=== PATIENT | male | born 1965 | race American Indian/Alaskan Native ===

== ENCOUNTER 2017-08-29 22:25 | Inpatient (IN) | payer BC ==
[2017-08-29] MEDS ORDERED: ASPIRIN PO ONE (23:52)
[2017-08-30 00:25] LABS: Basophils % (Auto) 0.7 % (0.0-1.8); Eosinophils # (Auto) 0.1 K/mm3 (0.0-0.4); Eosinophils % (Auto) 2.5 % (0.0-4.3); Hematocrit 42.6 % (35.5-45.6); Hemoglobin 14.4 gm/dl (11.8-15.2); Lymphocytes # (Auto) 1.5 K/mm3 (1.2-5.4); Lymphocytes % (Auto) 29.6 % (13.4-35.0); Mean Corpuscular HGB Conc 34 % (32-34); Mean Corpuscular Hemoglobin 30 pg (28-32); Mean Corpuscular Volume 89 fl (84-94); Monocytes # (Auto) 0.3 K/mm3 (0.0-0.8); Monocytes % (Auto) 5.4 % (0.0-7.3); Platelet Count 209 K/mm3 (140-440); Red Blood Count 4.81 M/mm3 (3.65-5.03); Red Cell Distribution Width 13.3 % (13.2-15.2)
[2017-08-30 00:33] LABS: BUN/Creatinine Ratio 13; Blood Urea Nitrogen 12 mg/dL (9-20); Calcium 9.6 mg/dL (8.4-10.2); Hemolysis Index 23
--- NOTE | 2017-08-30 02:31 | Emergency Department Report ---
ED Chest Pain HPI - General Chief Complaint: Chest Pain Stated Complaint: DIZZINESS,LEFT SHOULDER PAIN Time Seen by Provider: 08/30/17 00:11 Source: patient Mode of arrival: Ambulatory Limitations: No Limitations - History of Present Illness Initial Comments: Patient with chest pain for the last 3 days after 3 weeks of back pain that got better with a muscle relaxor. Patient did state at the end of the visit that he had a stress test 1 month ago and that the only concern was that his HR jumped up quickly on the test. He has no risk factors and no early VA in family. No pain change with position. -: days(s) (3) Onset: during rest, during exertion Pain Location: substernal Pain Radiation: none Severity: moderate Severity scale (0 -10): 5 Quality: heaviness, sharp Consistency: intermittent Improves With: nothing Worsens With: nothing re: other Other Symptoms: other (none) Aspirin use within the Past 7 Days: (0) No - Related Data Allergies Allergy/AdvReac Type Severity Reaction Status Date / Time No Known Allergies Allergy Unverified 08/29/17 23:51 Heart Score - HEART Score History: Moderately suspicious EKG: Non-specific Age: 45-65 Risk factors: No known risk factors Troponin: < normal limit HEART Score: 3 ED Review of Systems ROS: Stated complaint: DIZZINESS,LEFT SHOULDER PAIN Other details as noted in HPI Constitutional: denies: chills, fever Eyes: denies: eye pain, eye discharge, vision change ENT: denies: ear pain, throat pain Respiratory: denies: cough, shortness of breath, wheezing Cardiovascular: chest pain. denies: palpitations Endocrine: no symptoms reported Gastrointestinal: denies: abdominal pain, nausea, diarrhea Genitourinary: denies: urgency, dysuria Musculoskeletal: denies: back pain, joint swelling, arthralgia Skin: denies: rash, lesions Neurological: denies: headache, weakness, paresthesias Psychiatric: denies: anxiety, depression Hematological/Lymphatic: denies: easy bleeding, easy bruising ED Past Medical Hx - Past Medical History Hx GERD: Yes Hx Asthma: Yes - Surgical History Past Surgical History?: Yes Additional Surgical History: right forearm, compartment symdrome - Social History Smoking Status: Never Smoker Substance Use Type: Alcohol ED Physical Exam - General Limitations: No Limitations General appearance: alert, in no apparent distress - Head Head exam: Present: atraumatic, normocephalic - Eye Eye exam: Present: normal appearance - ENT ENT exam: Present: mucous membranes moist - Neck Neck exam: Present: normal inspection - Respiratory Respiratory exam: Present: normal lung sounds bilaterally. Absent: respiratory distress - Cardiovascular Cardiovascular Exam: Present: regular rate, normal rhythm. Absent: systolic murmur, diastolic murmur, rubs, gallop - GI/Abdominal GI/Abdominal exam: Present: soft, normal bowel sounds - Rectal Rectal exam: Present: deferred - Extremities Exam Extremities exam: Present: normal inspection - Back Exam Back exam: Present: normal inspection - Neurological Exam Neurological exam: Present: alert, oriented X3 - Psychiatric Psychiatric exam: Present: normal affect, normal mood - Skin Skin exam: Present: warm, dry, intact, normal color. Absent: rash ED Course Vital Signs 08/29/17 08/29/17 08/30/17 23:16 23:47 00:10 Temperature 98.0 F 98 F 98.5 F Pulse Rate 74 76 75 Respiratory 18 18 16 Rate Blood Pressure 145/75 145/75 Blood Pressure 172/89 [Left] O2 Sat by Pulse 99 99 99 Oximetry DOUGLAS score - Douglas Score Age > 65: (0) No Aspirin use within the Past 7 Days: (0) No 3 or more CAD Risk Factors: (0) No 2 or more Angina events in past 24 hrs: (1) Yes Known CAD with more than 50% Stenosis: (0) No Elevated Cardiac Markers: (0) No ST Deviation Greater than 0.5mm: (1) Yes DOUGLAS Score: 2 ED Medical Decision Making - Lab Data Result diagrams: 08/29/17 23:59 08/29/17 23:59 Unremarkable labs - EKG Data -: EKG Interpreted by Sd EKG shows normal: sinus rhythm, intervals (Normal), QRS complexes (normal), ST- T waves (Elevation in the anterior lead on both EKGs at 08/29/17 23:50 and 08/30/17 2:12. D/W Dr. Acevedo and he agreed not STEMI.) Rate: normal - EKG Data Interpretation: nonspecific ST-T wave milka - Medical Decision Making Will admit patient for monitoring and consult by cardiology. His PCP is Dr. Luke and he does not have an established registered nurse midwife per patient. His Sx are not consistent with pericarditis and with elevated HR on stress and now anterior lead ST changes he needs to be monitored. Critical care attestation.: If time is entered above; I have spent that time in minutes in the direct care of this critically ill patient, excluding procedure time. ED Disposition Clinical Impression: Abnormal EKG Chest pain Qualifiers: Chest pain type: unspecified Qualified Code(s): R07.9 - Chest pain, unspecified Disposition: 09 OP ADMIT IP TO THIS HOSP Is pt being admited?: Yes Does the pt Need Aspirin: Yes Condition: Stable Instructions: Chest Pain (ED) Time of Disposition: 02:47
[2017-08-30] MEDS ORDERED: BABY ASPIRIN PO ONE (02:47)
[2017-08-30] MEDS ORDERED: ZOFRAN IV PRN (04:16)
[2017-08-30] MEDS ORDERED: MORPHINE IV PRN (04:16)
[2017-08-30] MEDS ORDERED: DULCOLAX PR PRN (04:16)
[2017-08-30] MEDS ORDERED: MILK OF MAGNESIA PO PRN (04:16)
[2017-08-30] MEDS ORDERED: TYLENOL PO PRN (04:16)
--- NOTE | 2017-08-30 04:24 | History and Physical Report ---
History of Present Illness Date of examination: 08/30/17 History of present illness: 51 with history of asthma comes emergency room complaining of chest pain 3 days. Pain is in the substernal area which he describes a dull pain, intermittent for less than 1 minute, intensity 5/10, no radiation. Denies nausea, vomiting, diaphoresis, palpitation, shortness of breath. It is stress test one month ago which was negative. Review Of Systems: Constitutional: no weight loss Ears, eyes, nose, mouth and throat: no nasal congestion, no nasal discharge, no sinus pressure, blurry vision, diplopia Neck: No neck pain or rigidity. Cardiovascular: No palpitations Respiratory: No shortness of breath, cough Gastrointestinal: No abdominal pain, hematochezia Genitourinary : no dysuria, frequency , hematuria Musculoskeletal: no muscle ache Integumentary: no rash, no pruritis Neurological: no parathesias, focal weakness Endocrine: no cold or heat intolerance, no polyuria or polydipsia Hematologic/Lymphatic: no easy bruising, no easy bleeding, no gland swelling Allergic/Immunologic: no urticaria, no angioedema. PAST MEDICAL HISTORY:asthma PAST SURGICAL HISTORY:right arm surgery FAMILY HISTORY:hypertension SOCIAL HISTORY: Social alcohol, no tobacco or drugs Medications and Allergies Allergies Allergy/AdvReac Type Severity Reaction Status Date / Time No Known Allergies Allergy Unverified 08/29/17 23:51 Exam - Physical Exam Narrative exam: Gen. appearance: Patient lying in bed in no acute distress HEENT: Normocephalic/atraumatic, pupils equal round reactive to light, extra occular movement intact, no scleral icterus, no JVD or thyromegaly or nodule, neck is supple, mucous membrane moist, no erythema or exudate Heart: S1-S2, regular rate and rhythm Lungs: Clear to auscultation bilateral breathing comfortable Abdomen: Positive bowel sounds, nontender, nondistended, no organomegaly Extremities: No edema, cyanosis, clubbing Neuro:: Oriented 3 , cranial nerves II-12 intact, speech, motor intact Skin: No rash, nodules, warm dry - Constitutional Vitals: Temp Pulse Resp BP Pulse Ox 98.5 F 75 16 172/89 99 08/30/17 00:10 08/30/17 00:10 08/30/17 00:10 08/30/17 00:10 08/30/17 00:10 Results - Labs CBC & Chem 7: 08/29/17 23:59 08/29/17 23:59 Labs: Abnormal lab results 08/29/17 Range/Units 23:59 Sodium 136 L (137-145) mmol/L Chloride 96.9 L (98-107) mmol/L Glucose 106 H (75-100) mg/dL - Imaging and Cardiology EKG: image reviewed Chest x-ray: image reviewed Assessment and Plan Assessment Atypical chest pain Asthma, stable Plan Admit to medicine Enzymes, chest x-ray, consult cardiology Start IV morphine, DVT prophylaxis
--- NOTE | 2017-08-30 05:00 | XRay Report ---
FINAL REPORT EXAM: XR CHEST 1V AP HISTORY: cp TECHNIQUE: A portable upright view of the chest was submitted. FINDINGS: Heart size and mediastinum appear normal. The lungs are clear. Pleural fluid is not seen. The bones and soft tissues are well maintained. IMPRESSION: No active chest disease.
[2017-08-30 05:49] LABS: Creatine Kinase MB 1.8 ng/mL (0.0-4.0)
--- NOTE | 2017-08-30 07:57 | Progress Note ---
<TRAV BEDOYA - Last Filed: 08/30/17 07:57> Hospitalist Physical - Constitutional Vitals: Temp Pulse Resp BP Pulse Ox 98.5 F 68 12 125/70 100 08/30/17 00:10 08/30/17 06:00 08/30/17 06:00 08/30/17 06:00 08/30/17 06:00 Results - Labs CBC & Chem 7: 08/29/17 23:59 08/29/17 23:59 Labs: Laboratory Last Values WBC 5.1 K/mm3 (4.5-11.0) 08/29/17 23:59 RBC 4.81 M/mm3 (3.65-5.03) 08/29/17 23:59 Hgb 14.4 gm/dl (11.8-15.2) 08/29/17 23:59 Hct 42.6 % (35.5-45.6) 08/29/17 23:59 MCV 89 fl (84-94) 08/29/17 23:59 MCH 30 pg (28-32) 08/29/17 23:59 MCHC 34 % (32-34) 08/29/17 23:59 RDW 13.3 % (13.2-15.2) 08/29/17 23:59 Plt Count 209 K/mm3 (140-440) 08/29/17 23:59 Lymph % (Auto) 29.6 % (13.4-35.0) 08/29/17 23:59 [place] % (Auto) 5.4 % (0.0-7.3) 08/29/17 23:59 Eos % (Auto) 2.5 % (0.0-4.3) 08/29/17 23:59 Baso % (Auto) 0.7 % (0.0-1.8) 08/29/17 23:59 Lymph # 1.5 K/mm3 (1.2-5.4) 08/29/17 23:59 [place] # 0.3 K/mm3 (0.0-0.8) 08/29/17 23:59 Eos # 0.1 K/mm3 (0.0-0.4) 08/29/17 23:59 Baso # 0.0 K/mm3 (0.0-0.1) 08/29/17 23:59 Seg Neutrophils % 61.8 % (40.0-70.0) 08/29/17 23:59 Seg Neutrophils # 3.1 K/mm3 (1.8-7.7) 08/29/17 23:59 Sodium 136 mmol/L (137-145) L 08/29/17 23:59 Potassium 4.1 mmol/L (3.6-5.0) 08/29/17 23:59 Chloride 96.9 mmol/L (98-107) L 08/29/17 23:59 Carbon Dioxide 27 mmol/L (22-30) 08/29/17 23:59 Anion Gap 16 mmol/L 08/29/17 23:59 BUN 12 mg/dL (9-20) 08/29/17 23:59 Creatinine 0.9 mg/dL (0.8-1.5) 08/29/17 23:59 Estimated GFR > 60 ml/min 08/29/17 23:59 BUN/Creatinine Ratio 13 % 08/29/17 23:59 Glucose 106 mg/dL (75-100) H 08/29/17 23:59 Calcium 9.6 mg/dL (8.4-10.2) 08/29/17 23:59 Total Creatine Kinase 219 units/L (55-170) H 08/30/17 05:09 CK-MB (CK-2) 1.8 ng/mL (0.0-4.0) 08/30/17 05:09 CK-MB (CK-2) Rel Index 0.8 (0-4) 08/30/17 05:09 Troponin T < 0.010 ng/mL (0.00-0.029) 08/30/17 05:09 <ALEX JEFFRIES M - Last Filed: 09/03/17 14:14> Assessment and Plan Assessment and plan: 1 Hospitalist Physical - Constitutional Vitals: Temp Pulse Resp BP Pulse Ox 98.9 F 67 18 138/75 99 08/30/17 12:17 08/30/17 10:00 08/30/17 12:17 08/30/17 12:17 08/30/17 10:00 Results - Labs CBC & Chem 7: 08/29/17 23:59 08/29/17 23:59 Labs: Laboratory Last Values WBC 5.1 K/mm3 (4.5-11.0) 08/29/17 23:59 RBC 4.81 M/mm3 (3.65-5.03) 08/29/17 23:59 Hgb 14.4 gm/dl (11.8-15.2) 08/29/17 23:59 Hct 42.6 % (35.5-45.6) 08/29/17 23:59 MCV 89 fl (84-94) 08/29/17 23:59 MCH 30 pg (28-32) 08/29/17 23:59 MCHC 34 % (32-34) 08/29/17 23:59 RDW 13.3 % (13.2-15.2) 08/29/17 23:59 Plt Count 209 K/mm3 (140-440) 08/29/17 23:59 Lymph % (Auto) 29.6 % (13.4-35.0) 08/29/17 23:59 [place] % (Auto) 5.4 % (0.0-7.3) 08/29/17 23:59 Eos % (Auto) 2.5 % (0.0-4.3) 08/29/17 23:59 Baso % (Auto) 0.7 % (0.0-1.8) 08/29/17 23:59 Lymph # 1.5 K/mm3 (1.2-5.4) 08/29/17 23:59 [place] # 0.3 K/mm3 (0.0-0.8) 08/29/17 23:59 Eos # 0.1 K/mm3 (0.0-0.4) 08/29/17 23:59 Baso # 0.0 K/mm3 (0.0-0.1) 08/29/17 23:59 Seg Neutrophils % 61.8 % (40.0-70.0) 08/29/17 23:59 Seg Neutrophils # 3.1 K/mm3 (1.8-7.7) 08/29/17 23:59 Sodium 136 mmol/L (137-145) L 08/29/17 23:59 Potassium 4.1 mmol/L (3.6-5.0) 08/29/17 23:59 Chloride 96.9 mmol/L (98-107) L 08/29/17 23:59 Carbon Dioxide 27 mmol/L (22-30) 08/29/17 23:59 Anion Gap 16 mmol/L 08/29/17 23:59 BUN 12 mg/dL (9-20) 08/29/17 23:59 Creatinine 0.9 mg/dL (0.8-1.5) 08/29/17 23:59 Estimated GFR > 60 ml/min 08/29/17 23:59 BUN/Creatinine Ratio 13 % 08/29/17 23:59 Glucose 106 mg/dL (75-100) H 08/29/17 23:59 Calcium 9.6 mg/dL (8.4-10.2) 08/29/17 23:59 Total Creatine Kinase 219 units/L (55-170) H 08/30/17 05:09 CK-MB (CK-2) 1.8 ng/mL (0.0-4.0) 08/30/17 05:09 CK-MB (CK-2) Rel Index 0.8 (0-4) 08/30/17 05:09 Troponin T < 0.010 ng/mL (0.00-0.029) 08/30/17 05:09
--- NOTE | 2017-08-30 09:41 | Consultation ---
History of Present Illness Consult date: 08/30/17 Consult reason: chest pain History of present illness: This is a 51yr old male with no prior cardiac history of presents with complaints of chest pain. Patient associates chest pain with dizziness and palpitations. He denies chest pain on exertion. There was no syncope. His ECG is a sinus rhythm with ST abnormalities, no significant change when compared to a prior outpatient ECG done 2 months ago. His most recent cardiac workup was a negative treadmill test done 2 months ago. Cardiology consultation was requested for further evaluation. Medications and Allergies Allergies Allergy/AdvReac Type Severity Reaction Status Date / Time No Known Allergies Allergy Unverified 08/29/17 23:51 Home Medications Medication Instructions Recorded Confirmed Last Taken Type No Known Home Medications [No 08/30/17 08/30/17 Unknown History Reported Home Medications] Active Meds: Active Medications Acetaminophen (Tylenol) 650 mg PO Q4H PRN PRN Reason: Pain MILD(1-3)/Fever >100.5/ENCARNACION Bisacodyl (Dulcolax) 10 mg WI QDAY PRN PRN Reason: Constipation unrelieved by MOM Enoxaparin Sodium (Lovenox) 40 mg SUB-Q QDAY ZARIA Magnesium Hydroxide (Milk Of Magnesia) 30 ml PO Q4H PRN PRN Reason: Constipation Morphine Sulfate (Morphine) 2 mg IV Q4H PRN PRN Reason: Pain, Moderate (4-6) Ondansetron HCl (Zofran) 4 mg IV Q8H PRN PRN Reason: N/V unrelieved by Reglan Physical Examination Vital Signs Temp Pulse Resp BP Pulse Ox 98.0 F 74 18 145/75 99 08/29/17 23:16 08/29/17 23:16 08/29/17 23:16 08/29/17 23:16 08/29/17 23:16 General appearance: no acute distress HEENT: Positive: PERRL Cardiac: Positive: Reg Rate and Rhythm Neuro: Positive: Grossly Intact Results 08/29/17 23:59 08/29/17 23:59 Cardiac Enzymes 08/30/17 Range/Units 05:09 CK-MB (CK-2) 1.8 (0.0-4.0) ng/mL CBC 08/29/17 Range/Units 23:59 WBC 5.1 (4.5-11.0) K/mm3 RBC 4.81 (3.65-5.03) M/mm3 Hgb 14.4 (11.8-15.2) gm/dl Hct 42.6 (35.5-45.6) % Plt Count 209 (140-440) K/mm3 Lymph # 1.5 (1.2-5.4) K/mm3 [place] # 0.3 (0.0-0.8) K/mm3 Eos # 0.1 (0.0-0.4) K/mm3 Baso # 0.0 (0.0-0.1) K/mm3 Comprehensive Metabolic Panel 08/29/17 Range/Units 23:59 Sodium 136 L (137-145) mmol/L Potassium 4.1 (3.6-5.0) mmol/L Chloride 96.9 L (98-107) mmol/L Carbon Dioxide 27 (22-30) mmol/L BUN 12 (9-20) mg/dL Creatinine 0.9 (0.8-1.5) mg/dL Glucose 106 H (75-100) mg/dL Calcium 9.6 (8.4-10.2) mg/dL Assessment and Plan Chest pain, atypical negative troponins negative TMT 06/2017 We will recommend a stress thallium test for further cardiac evaluation.
[2017-08-30] MEDS ORDERED: LOVENOX SUB-Q SCH (10:00)
[2017-08-30 12:46] VITALS: BP 138/75
--- NOTE | 2017-08-30 14:02 | Discharge Summary ---
<TRAV BEDOYA - Last Filed: 08/30/17 14:12> Providers - Providers Date of Admission: 08/30/17 04:16 Date of discharge: 08/30/17 Attending physician: ALEX JEFFRIES MD 08/30/17 04:16 Consult to Physician [CONS] Routine Consulting Provider: CHANDRA PEREZ Reason For Exam: cp Place consult to:: Dr. 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 Patient presented with atypical chest pain, ACS was ruled out, stress test normal MPI, negative cardiac enzymes, ECGs shows normal sinus rythm, CXR WNL. Patient chest pain probably from musculoskeletal. He was treated with IV fluid hydration. Patient is clinically improved Patient advised to follow-up with her primary care provider. Discharge Diagnosed Chest Pain due to Costochondritis Mild rhabdomyolysis Disposition: DC- TO HOME OR SELFCARE Time spent for discharge: 32 minutes Core Measure Documentation - Palliative Care Palliative Care/ Comfort Measures: Not Applicable - Core Measures Any of the following diagnoses?: none Exam - Constitutional Vitals: Temp Pulse Resp BP Pulse Ox 98.9 F 75 18 138/75 99 08/30/17 12:17 08/30/17 07:25 08/30/17 12:17 08/30/17 12:17 08/30/17 10:00 General appearance: Present: no acute distress - EENT Eyes: Present: PERRL ENT: hearing intact - Neck Neck: Present: supple - Respiratory Respiratory effort: normal Respiratory: bilateral: CTA - Cardiovascular Rhythm: regular Heart Sounds: Present: S1 & S2 - Extremities Extremities: no ischemia - Abdominal General gastrointestinal: Present: soft, non-tender Male genitourinary: Present: deferred - Rectal Rectal Exam: deferred - Integumentary Integumentary: Present: clear, warm, dry - Musculoskeletal Musculoskeletal: strength equal bilaterally - Psychiatric Psychiatric: appropriate mood/affect - Neurologic Neurologic: CNII-XII intact - Allied Health Allied health notes reviewed: nursing Plan Diet: low fat, low cholesterol, low salt Follow up with: BERTRAND BURKETT MD [Primary Care Provider] - 7 Days Forms: Work/School Release Form Prescriptions: Aspirin 81 mg PO DAILY 30 Days tab.chew <ALEX JEFFRIES - Last Filed: 09/03/17 14:14> Providers - Providers Date of Admission: 08/30/17 04:16 Attending physician: ALEX JEFFRIES MD 08/30/17 04:16 Consult to Physician [CONS] Routine Consulting Provider: CHANDRA PEREZ Reason For Exam: cp Place consult to:: Dr. Perez Notified:: Lico REARDON Phone number called:: Was contact made?: Yes If yes, spoke with:: Sudha-answering service Time called:: 08:02 Primary care physician: BERTRAND BURKETT Exam - Constitutional Vitals: Temp Pulse Resp BP Pulse Ox 98.9 F 67 18 138/75 99 08/30/17 12:17 08/30/17 10:00 08/30/17 12:17 08/30/17 12:17 08/30/17 10:00
--- NOTE | 2017-08-30 23:21 | Treadmill Report ---
STRESS TEST INDICATION: Chest pain. ORDERING PHYSICIAN: Dr. uOmou Vela. FINDINGS: There is no scintigraphic evidence of myocardial ischemia. The left ventricle is normal in size and systolic function, left ventricular ejection fraction is measured at 68%. There is normal wall motion and wall thickening noted on gated imaging. CONCLUSION: Normal perfusion scan. JOB# [id number] ANDRE/CAMILO
== END 2017-08-30 16:32 | disposition home or self-care (01) | DRG 206 ==
LOC: ED 22:25 → 4A 08-30 04:16
PROVIDERS: ADMIT Internal Medicine; ATTEND Internal Medicine
DX: M94.0 Chondrocostal junction syndrome [Tietze] (principal); M62.82 Rhabdomyolysis; K21.9 Gastro-esophageal reflux disease without esophagitis; J45.909 Unspecified asthma, uncomplicated; Z82.49 Family history of ischemic heart disease and other diseases of the circulatory system
CPT/HCPCS: 36415; 71045; 78452; 80048; 82550; 82553; 84484; 85025; 93005; 93010; 93017; A9502

== ENCOUNTER 2017-11-16 10:46 | Outpatient (CLI) | payer BC ==
[2017-11-16 11:23] LABS: Basophils % (Auto) 0.7 % (0.0-1.8); Eosinophils % (Auto) 1.2 % (0.0-4.3); Hematocrit 42.1 % (35.5-45.6); Hemoglobin 14.3 gm/dl (11.8-15.2); Lymphocytes # (Auto) 0.9 K/mm3 (1.2-5.4); Lymphocytes % (Auto) 30.4 % (13.4-35.0); Mean Corpuscular HGB Conc 34 % (32-34); Mean Corpuscular Hemoglobin 30 pg (28-32); Mean Corpuscular Volume 89 fl (84-94); Monocytes # (Auto) 0.2 K/mm3 (0.0-0.8); Monocytes % (Auto) 6.8 % (0.0-7.3); Platelet Count 200 K/mm3 (140-440); Red Blood Count 4.76 M/mm3 (3.65-5.03)
[2017-11-16 11:52] LABS: Alanine Aminotransferase 25 units/L (7-56); Albumin 4.5 g/dL (3.9-5); BUN/Creatinine Ratio 11; Blood Urea Nitrogen 11 mg/dL (9-20); Calcium 9.6 mg/dL (8.4-10.2); Chol/HDL Ratio 2.36 %; HDL Cholesterol 74 mg/dL (40-59); Hemolysis Index 7
[2017-11-16 12:04] LABS: LDL Cholesterol,Direct 103 mg/dL (50-130)
--- NOTE | 2017-11-16 12:37 | XRay Report ---
THORACIC SPINE, 2 VIEWS: HISTORY: back pain. Normal bone mineralization. No evidence for compression deformity, malalignment, or bone lesion. The posterior ribs are intact. The paraspinal soft tissues are within normal limits. IMPRESSION: Thoracic spine within normal limits.
--- NOTE | 2017-11-16 12:37 | XRay Report ---
AP AND LATERAL CERVICAL SPINE: History: Pain. The vertebral bodies are well mineralized and normal in alignment and vertebral height with well preserved interspace distances. The visualized portions of the posterior elements are normal. IMPRESSION: Normal study.
--- NOTE | 2017-11-16 12:38 | XRay Report ---
AP AND LATERAL LUMBOSACRAL SPINE: History: Pain. The vertebral bodies are well mineralized and normal in alignment and vertebral height with well preserved interspace distances. The visualized portions of the posterior elements are normal. IMPRESSION: Lumbar spine within normal limits.
== END 2017-11-16 10:47 | disposition home or self-care (01) ==
LOC: XRAY 10:46
DX: Z12.5 Encounter for screening for malignant neoplasm of prostate (principal); I77.9 Disorder of arteries and arterioles, unspecified; G89.29 Other chronic pain; M54.6 Pain in thoracic spine; M54.5 Low back pain; M54.2 Cervicalgia; R42 Dizziness and giddiness; R79.89 Other specified abnormal findings of blood chemistry; W34.00XA Accidental discharge from unspecified firearms or gun, initial encounter
CPT/HCPCS: 36415; 72040; 72072; 72100; 80053; 80061; 83036; 83655; 84153; 84443; 85025

== ENCOUNTER 2018-03-16 07:16 | Outpatient (CLI) | payer BC ==
[2018-03-16 07:27] LABS: Basophils % (Auto) 0.5 % (0.0-1.8); Eosinophils # (Auto) 0.3 K/mm3 (0.0-0.4); Eosinophils % (Auto) 9.4 % (0.0-4.3); Hematocrit 40.6 % (35.5-45.6); Hemoglobin 14.2 gm/dl (11.8-15.2); Lymphocytes # (Auto) 1.1 K/mm3 (1.2-5.4); Lymphocytes % (Auto) 32.6 % (13.4-35.0); Mean Corpuscular HGB Conc 35 % (32-34); Mean Corpuscular Hemoglobin 31 pg (28-32); Mean Corpuscular Volume 90 fl (84-94); Monocytes # (Auto) 0.2 K/mm3 (0.0-0.8); Monocytes % (Auto) 6.2 % (0.0-7.3); Platelet Count 196 K/mm3 (140-440); Red Blood Count 4.54 M/mm3 (3.65-5.03); Red Cell Distribution Width 13.2 % (13.2-15.2)
== END 2018-03-16 07:17 | disposition home or self-care (01) ==
LOC: LAB 07:16
PROVIDERS: ATTEND Internal Medicine
DX: Z88.6 Allergy status to analgesic agent (principal); J45.909 Unspecified asthma, uncomplicated
CPT/HCPCS: 36415; 82607; 83655; 83921; 85025; 86038; 86618

== ENCOUNTER 2019-12-20 08:28 | Outpatient (CLI) | payer BC ==
[2019-12-20 09:07] LABS: Alanine Aminotransferase 29 units/L (7-56); Albumin 4.4 g/dL (3.9-5); BUN/Creatinine Ratio 11; Blood Urea Nitrogen 12 mg/dL (9-20); Calcium 9.5 mg/dL (8.4-10.2); HDL Cholesterol 74 mg/dL (40-59); Hemolysis Index 5; LDL Cholesterol,Direct 85 mg/dL (50-130)
== END 2019-12-20 08:29 | disposition home or self-care (01) ==
LOC: LAB 08:28
DX: I65.23 Occlusion and stenosis of bilateral carotid arteries (principal)
CPT/HCPCS: 36415; 80053; 80061

== ENCOUNTER 2020-01-24 08:38 | Outpatient (CLI) | payer BC ==
--- NOTE | 2020-01-24 10:05 | Treadmill Report ---
TREADMILL STRESS TEST REPORT REASON FOR TEST: Palpitations and chest pain. The patient exercised for 12 minutes of a Andres protocol, completing stage 4 and achieving 13 METs. Peak heart rate was 173 beats per minute. Peak blood pressure was 165 mmHg. There was no chest pain. Test was stopped for fatigue. Baseline ECG was sinus rhythm. With exercise, there were no ST changes of ischemia. No significant dysrhythmias were noted. CONCLUSION: Normal exercise ECG test. JOB# [id number] CA/NTS
== END 2020-01-24 08:39 | disposition home or self-care (01) ==
LOC: CARD 08:38
PROVIDERS: ATTEND Internal Medicine
DX: R07.9 Chest pain, unspecified (principal)
CPT/HCPCS: 93017

== ENCOUNTER 2020-09-11 14:07 | Outpatient (CLI) | payer BC ==
--- NOTE | 2020-09-11 15:49 | XRay Report ---
CHEST 2 VIEWS INDICATION: HEMOPTYSIS. COMPARISON: 08/30/2017 FINDINGS: Support devices: None. Heart: Within normal limits. Lungs/pleura: No acute air space or interstitial disease. No pneumothorax. Additional findings: None. IMPRESSION: Unremarkable chest films. No clear explanation for hemoptysis on chest x-ray. Signer Name: Vito Hall Jr, MD Signed: 09/11/2020 3:45 PM Workstation Name: [id number]
== END 2020-09-11 14:08 | disposition home or self-care (01) ==
LOC: XRAY 14:07
PROVIDERS: ATTEND Internal Medicine
DX: R04.2 Hemoptysis (principal)
CPT/HCPCS: 71046

== ENCOUNTER 2020-09-25 09:57 | Outpatient (CLI) | payer BC ==
[2020-09-25 10:49] LABS: Basophils % (Auto) 0.8 % (0.0-1.8); Eosinophils # (Auto) 0.2 K/mm3 (0.0-0.4); Hematocrit 42.8 % (35.5-45.6); Hemoglobin 14.8 gm/dl (11.8-15.2); Lymphocytes # (Auto) 1.4 K/mm3 (1.2-5.4); Lymphocytes % (Auto) 41.7 % (13.4-35.0); Mean Corpuscular HGB Conc 35 % (32-34); Mean Corpuscular Volume 90 fl (84-94); Monocytes # (Auto) 0.3 K/mm3 (0.0-0.8); Platelet Count 197 K/mm3 (140-440); Red Blood Count 4.74 M/mm3 (3.65-5.03); Red Cell Distribution Width 12.9 % (13.2-15.2)
[2020-09-25 11:04] LABS: Alanine Aminotransferase 27 units/L (7-56); Albumin 4.7 g/dL (3.9-5); BUN/Creatinine Ratio 10; Blood Urea Nitrogen 11 mg/dL (9-20); Calcium 9.5 mg/dL (8.4-10.2); Chol/HDL Ratio 1.92 %; HDL Cholesterol 90 mg/dL (40-59); Hemolysis Index 7; LDL Cholesterol,Direct 93 mg/dL (50-130)
== END 2020-09-25 09:58 | disposition home or self-care (01) ==
LOC: LAB 09:57
PROVIDERS: ATTEND Internal Medicine
DX: Z00.00 Encounter for general adult medical examination without abnormal findings (principal); Z13.29 Encounter for screening for other suspected endocrine disorder; Z13.220 Encounter for screening for lipoid disorders; E55.9 Vitamin D deficiency, unspecified
CPT/HCPCS: 36415; 80053; 80061; 82306; 82607; 83036; 84153; 84443; 85025

== ENCOUNTER 2020-10-07 12:44 | Outpatient (CLI) | payer BC ==
--- NOTE | 2020-10-07 14:57 | Vascular Lab Report ---
BILATERAL CAROTID DOPPLER ULTRASOUND INDICATION : OCCLUSION/STENOSIS OF CAROTID ARTERY TECHNIQUE: Grayscale and color Doppler imaging performed through the neck. COMPARISON: None FINDINGS: Right: There is no significant atherosclerotic disease. Peak systolic velocity in the CCA is 106 cm /s with end-diastolic velocity of 21 cm/s. Peak systolic velocity in the proximal ICA is 93 cm/s with end-diastolic velocity of 19 cm/s. ICA to CCA ratio is less than 2. There is antegrade flow in the ECA and the vertebral artery. Left: There is no significant atherosclerotic disease. Peak systolic velocity in the CCA is 118 cm/s with end-diastolic velocity of 29 cm/s. Peak systolic velocity in the proximal ICA is 82 cm/s with en d-diastolic velocity of 24 cm/s. ICA to CCA ratio is less than 2. There is antegrade flow in the ECA and the vertebral artery. IMPRESSION: No hemodynamically significant stenosis by NASCET criteria. Doppler velocities indicate l ess than 50% luminal narrowing bilaterally. Signer Name: Vito Hall Jr, MD Signed: 10/07/2020 2:53 PM Workstation Name: [id number]
== END 2020-10-07 12:45 | disposition home or self-care (01) ==
LOC: VAS 12:44
PROVIDERS: ATTEND Internal Medicine
DX: I65.29 Occlusion and stenosis of unspecified carotid artery (principal)
CPT/HCPCS: 93880

== ENCOUNTER 2021-03-19 14:21 | Outpatient (CLI) | payer BC ==
--- NOTE | 2021-03-19 16:18 | Magnetic Resonance Report ---
MRI BRAIN 03/19/2021 INDICATION / CLINICAL INFORMATION: G43.C1-ICD 10 HEADACHES & PRESSURE ON LT SIDE X 1 YEAR. TECHNIQUE: Multiplanar, multisequence MR images of the brain were obtained. COMPARISON: None available. FINDINGS: BRAIN / INTRACRANIAL CONTENTS: Unenhanced MR images of the brain demonstrate no evidence of acute int racranial abnormality. Ventricles and sulci are normal in size and shape. There is no evidence of ischemic injury, demyelination, hemorrhage, or mass. There are no abnormal ex tra-axial fluid collections. EXTRACRANIAL: Unremarkable CRANIOCERVICAL JUNCTION: No significant abnormality. VASCULAR FLOW-VOIDS: No significant abnormality. IMPRESSION: Negative unenhanced MRI of the brain. Signer Name: Matty James MD Signed: 03/19/2021 4:13 PM Workstation Name: [id number]
== END 2021-03-19 14:22 | disposition home or self-care (01) ==
LOC: MRI 14:21
DX: G43.C1 Periodic headache syndromes in child or adult, intractable (principal)
CPT/HCPCS: 70551

== ENCOUNTER 2021-06-04 10:15 | Outpatient (CLI) | payer BC ==
[2021-06-04 10:42] LABS: Basophils % (Auto) 0.6 % (0.0-1.8); Eosinophils # (Auto) 0.1 K/mm3 (0.0-0.4); Eosinophils % (Auto) 1.8 % (0.0-4.3); Hematocrit 40.7 % (35.5-45.6); Hemoglobin 14.1 gm/dl (11.8-15.2); Lymphocytes # (Auto) 0.9 K/mm3 (1.2-5.4); Lymphocytes % (Auto) 19.4 % (13.4-35.0); Mean Corpuscular HGB Conc 35 % (32-34); Mean Corpuscular Volume 91 fl (84-94); Monocytes # (Auto) 0.3 K/mm3 (0.0-0.8); Monocytes % (Auto) 5.8 % (0.0-7.3); Platelet Count 193 K/mm3 (140-440); Red Blood Count 4.47 M/mm3 (3.65-5.03); Red Cell Distribution Width 12.8 % (13.2-15.2)
[2021-06-04 11:03] LABS: Chol/HDL Ratio 2.15 %
[2021-06-07 13:15] LABS: Vitamin D, 25-OH, D2 <4 ng/mL
== END 2021-06-04 10:16 | disposition home or self-care (01) ==
LOC: LAB 10:15
PROVIDERS: ATTEND Internal Medicine
DX: E55.9 Vitamin D deficiency, unspecified (principal); R73.9 Hyperglycemia, unspecified; R42 Dizziness and giddiness; D72.819 Decreased white blood cell count, unspecified
CPT/HCPCS: 36415; 80061; 82306; 82607; 83036; 83655; 85025; 86900; 86901

== ENCOUNTER 2021-10-14 08:35 | Outpatient (CLI) | payer BC ==
[2021-10-14 09:21] LABS: Basophils % (Auto) 0.8 % (0.0-1.8); Eosinophils # (Auto) 0.2 K/mm3 (0.0-0.4); Eosinophils % (Auto) 6.8 % (0.0-4.3); Hematocrit 42.7 % (35.5-45.6); Hemoglobin 14.4 gm/dl (11.8-15.2); Lymphocytes # (Auto) 1.1 K/mm3 (1.2-5.4); Lymphocytes % (Auto) 36.8 % (13.4-35.0); Mean Corpuscular HGB Conc 34 % (32-34); Mean Corpuscular Volume 90 fl (84-94); Monocytes # (Auto) 0.2 K/mm3 (0.0-0.8); Monocytes % (Auto) 5.3 % (0.0-7.3); Platelet Count 193 K/mm3 (140-440); Red Blood Count 4.73 M/mm3 (3.65-5.03); Red Cell Distribution Width 12.8 % (13.2-15.2)
[2021-10-14 09:42] LABS: Alanine Aminotransferase 23 units/L (7-56); Albumin 4.8 g/dL (3.9-5); BUN/Creatinine Ratio 11; Blood Urea Nitrogen 12 mg/dL (9-20); Calcium 9.9 mg/dL (8.4-10.2); Chol/HDL Ratio 2.11 %; HDL Cholesterol 86 mg/dL (40-59); Hemolysis Index 5; LDL Cholesterol,Direct 99 mg/dL (50-130)
== END 2021-10-14 08:36 | disposition home or self-care (01) ==
LOC: LAB 08:35
PROVIDERS: ATTEND Internal Medicine
DX: Z00.00 Encounter for general adult medical examination without abnormal findings (principal); R73.9 Hyperglycemia, unspecified; I10 Essential (primary) hypertension; R39.11 Hesitancy of micturition; E55.9 Vitamin D deficiency, unspecified
CPT/HCPCS: 36415; 80053; 80061; 82306; 83036; 84153; 84443; 85025

== ENCOUNTER 2022-05-25 10:03 | Outpatient (CLI) | payer BC | END 2022-05-25 10:04 | disposition home or self-care (01) | LOC: LAB 10:03 | PROVIDERS: ATTEND Internal Medicine | DX: Z20.2 Contact with and (suspected) exposure to infections with a predominantly sexual mode of transmission (principal) | CPT/HCPCS: 36415; 86592; 86689; 87529; 87591 ==